=== PATIENT | female | born 1995 | race Caucasian/White ===

== ENCOUNTER 2017-04-09 04:41 | Emergency (ER) | payer SELFPAY ==
[~2017-04-09] VITALS: Ht 157.5 cm; Wt 50.0 kg
[2017-04-09 04:44] VITALS: BP 121/86; PULSE 70; RESP 16; TEMP 98.3; O2SAT 100
--- NOTE | 2017-04-09 05:33 | PD ---
HPI Chief Complaint: Complaint Time Seen by Provider: 05:13 Travel History International Travel<30 days: No Contact w/Intl Traveler<30days: No Traveled to known affect area: No History of Present Illness HPI Patient had a UTI about 10 days ago treated for 7 days of Bactrim didn't feel it completely cleared up but then after few more days she had no more symptoms now today just a few hours ago woke her up from sleep. She had urgent need to urinate . Blood clot came out first Then urine came out with a little clot of blood followed by urine and a gravelly clawing feeling as she urinated. Patient denies back pain she denies flank pain she denies fevers she denies shaking chills PFSH Past Medical History Diminished Hearing: No Genitourinary: Yes (UTI) ?: Unknown LMP: 03/26/17 Past Surgical History Surgical History: No Previous Surgery Social History Alcohol Use: No Tobacco Use: No Substance Use: No Allergies-Medications (Allergen,Severity, Reaction): Coded Allergies: No Known Allergies (Unverified , 04/09/17) Reported Meds & Prescriptions Reported Meds & Active Scripts Active Levaquin (Levofloxacin) 750 Mg Tablet 750 Mg PO DAILY Review of Systems Except as stated in HPI: all other systems reviewed are Neg Genitourinary: Positive: Urgency, Dysuria Physical Exam Narrative GENERAL: Nontoxic-appearing awake alert SKIN: Warm and dry. HEAD: Atraumatic. Normocephalic. EYES: Pupils equal and round. No scleral icterus. No injection or drainage. ENT: No nasal bleeding or discharge. Mucous membranes pink and moist. NECK: Trachea midline. No JVD. CARDIOVASCULAR: Regular rate and rhythm. RESPIRATORY: No accessory muscle use. Clear to auscultation. Breath sounds equal bilaterally. GASTROINTESTINAL: Abdomen mild suprapubic tenderness no CVA tenderness no lower back nondistended. Hepatic and splenic margins not palpable. MUSCULOSKELETAL: Extremities without clubbing, cyanosis, or edema. No obvious deformities. NEUROLOGICAL: Awake and alert. No obvious cranial nerve deficits. Motor grossly within normal limits. Five out of 5 muscle strength in the arms and legs. Normal speech. PSYCHIATRIC: Appropriate mood and affect; insight and judgment normal. Data Data Last Documented VS Vital Signs Date Time Temp Pulse Resp B/P (MAP) Pulse Ox O2 Delivery O2 Flow Rate FiO2 04/09/17 04:44 98.3 70 16 121/86 (98) 100 Orders Orders Urinalysis - C+S If Indicated (04/09/17 05:14) Urine Culture (04/09/17 05:05) Levofloxacin (Levaquin) (04/09/17 06:00) Ed Discharge Order (04/09/17 06:26) Labs Laboratory Tests Test 04/09/17 05:05 Urine Color LIGHT-YELLOW Urine Turbidity HAZY Urine pH 6.5 Urine Specific [place] 1.005 Urine Protein 30 mg/dL Urine Glucose (UA) NEG mg/dL Urine Ketones NEG mg/dL Urine Occult Blood LARGE Urine Nitrite NEG Urine Bilirubin NEG Urine Urobilinogen LESS THAN 2.0 MG/DL Urine Leukocyte Esterase LARGE Urine RBC 9 /hpf Urine WBC /hpf Urine WBC Clumps MOD Urine Squamous Epithelial Cells 1 /hpf Urine Renal Epithelial Cells 1 /hpf Urine Bacteria FEW /hpf Urine Mucus FEW /lpf Microscopic Urinalysis Comment CULTURE INDICATED MDM Medical Decision Making Medical Screen Exam Complete: Yes Emergency Medical Condition: Yes Differential Diagnosis Differential diagnosis is cystitis versus pelvic pain versus pyelonephritis versus abdomen pain NOS versus urethritis Narrative Course Patient's urine comes back large leuk esterase moderate white blood cell clumps she has a positive UTI I will treat her with Levaquin 750 by mouth and send her out with 750 by mouth daily for 5 days Diagnosis Primary Impression: UTI (urinary tract infection) Qualified Codes: N30.00 - Acute cystitis without hematuria Patient Instructions: General Instructions, Urinary Tract Infection in Women ( ED) Scripts Levofloxacin (Levaquin) 750 Mg Tablet 750 MG PO DAILY for Infection, #7 TAB 0 Refills Prov: Car Claudio MD 04/09/17 Disposition: 01 DISCHARGE HOME Condition: Car Saravia MD Apr 09, 2017 05:33
[2017-04-09 05:36] LABS: BACTERIA, URINE FEW /hpf; BILIRUBIN, URINE NEG (NEG); BLOOD, URINE LARGE (NEG); GLUCOSE,URINE NEG (NEG); KETONE, URINE NEG (NEG); MUCUS URINE FEW /lpf (OCC); NITRITE,URINE NEG (NEG); PH, URINE 6.5 (5.0-8.5); RENAL EPITHELIAL CELLS 1 /hpf; SQUAMOUS EPITHELIAL CELL URINE 1 /hpf (0-5); URINE COLOR LIGHT-YELLOW (YELLW/STRAW); URINE LEUKOCYTE ESTERASE LARGE (NEG); WHITE BLOOD CELL CLUMPS MOD
[2017-04-09] MEDS ORDERED: LEVA750T9 PO (05:53)
[2017-04-09] MEDS ORDERED: LEVOFLOXACIN 750 MG TAB PO ONE ×2 (06:00→06:45)
[2017-04-09] MEDS ORDERED: ONDANSETRON ODT 4 MG TAB PO ONE (06:45)
[2017-04-09] MEDS ORDERED: ZOFR4TAB3 SL (06:48)
== END 2017-04-09 06:58 | disposition home or self-care (01) ==
LOC: NEPE 04:41
DX: N30.00 Acute cystitis without hematuria (principal); B96.20 Unspecified Escherichia coli [E. coli] as the cause of diseases classified elsewhere; Z87.440 Personal history of urinary (tract) infections
CPT/HCPCS: 81001; 87077; 87086; 87186; 99284